=== PATIENT | male | born 1950 | race Caucasian/White ===

== ENCOUNTER 2020-03-23 19:36 | Inpatient (IN) | payer OTHER, MEDICARE, SELFPAY ==
[2020-03-23] VITALS (7 sets, daily range): BP systolic 96–156; BP diastolic 52–75; PULSE 75–90; RESP 16–28; TEMP 37.2–37.9; O2SAT 94–99; BMI 30.7; BMI 30.1
--- NOTE | 2020-03-23 19:59 | EKG12_ITS ---
Test Reason : CP Blood Pressure : / mmHG Vent. Rate : 077 BPM Atrial Rate : 077 BPM P-R Int : 110 ms QRS Dur : 088 ms QT Int : 370 ms P-R-T Axes : 045 015 017 degrees QTc Int : 418 ms Sinus rhythm with short [place] Otherwise normal ECG Confirmed by ALONSO ABDULLAHI, CLAUS ([id number]), graphic editor JOHN PIÑA ([id number]) on 03/29/2020 9:24:36 AM Referred By: DC Confirmed By:JOE GUPTA MD
[2020-03-23] MEDS: 0.9% Normal Saline 1,000 ML 1000 ML IV (20:20)
[2020-03-23 20:29] LABS: Absolute Lymphocyte Count 0.56 X10^3/uL (0.83-4.51); Absolute Neutrophil Count 13.5 X10^3/uL (2.0-7.7); Basophil# 0.01 X10^3/uL; Basophil% 0.1 % (0-1); Hematocrit 45.8 % (40-54); Hemoglobin 15.6 g/dL (13.0-16.5); Lymphocyte # 0.56 X10^3/ul (4.0); Lymphocyte % 3.8 % (19-41); Mean Corp Hgb Conc 34.1 g/dL (32-36); Mean Corpuscular Hgb 31.7 pg (27.0-32.0); Mean Corpuscular Volume 93.1 fL (80-94); Mean Platelet Vol. 10.5 fl (6.2-12.0); Monocyte# 0.55 X10^3/uL; Monocyte% 3.7 % (0-10); NRBC Flagged by Analyzer 0 % (0-5); Neutrophil # 13.51 X10^3/uL (2.7-7.7); Neutrophil % 91.6 % (47-70); POSITIVE DIFFERENTIAL YES; Platelet Count 163 K/mm3 (150-450); RBC Distribution Width CV 12.8 % (11.6-14.6); RBC Distribution Width SD 43.8 fl (35.1-43.9); Red Blood Count 4.92 M/mm3 (4.6-6.2); White Blood Count 14.8 K/mm3 (4.4-11.0)
[2020-03-23 20:35] LABS: Differential Indicated SCAN CRITERIA MET; International Normalized Ratio 1.1; Prothrombin Time (Protime)PT. 13.8 SECONDS (11.7-14.9)
[2020-03-23 20:36] LABS: Partial Thromboplast Time 30.3 Seconds (24.1-36.2)
[2020-03-23 20:49] LABS: ALB/GLOB Ratio 0.9 RATIO (0.9-2.4); AST(SGOT) 43 U/L (15-37); Alanine Aminotransfer ALT/SGPT 41 U/L (16-61); Albumin, Serum 3.3 g/dL (3.2-5.0); Alkaline Phosphatase 78 U/L (45-117); Anion Gap 9 (5-15); BUN 21 mg/dL (7-18); BUN/Creat Ratio 15.6 RATIO (10-20); Calcium,Total 8.6 mg/dL (8.5-10.1); Chloride 108 mmol/L (98-107); Creatinine, Serum 1.35 mg/dL (0.70-1.30); EST Glomerular Filtration Rate 56 mL/min (>60); Est Glom Filt Rate - Afr Amer 68 mL/min (>60); Estimated Creatinine Clearance 55.78 ml/min; Globulin 3.8 g/dL (2.2-4.2); Glucose 125 mg/dL (74-106); Potassium 3.8 mmol/L (3.5-5.1); Protein, Total 7.1 g/dL (6.4-8.2); Sodium Level 141 mmol/L (136-145)
[2020-03-23 20:55] LABS: Differential Comment SCANNED; Platelet Estimate ADEQUATE (ADEQ); Red Cell Morphology NORM C+C NORMAL (NORM C&C)
--- NOTE | 2020-03-23 21:14 | CT_ITS ---
STUDY: CTA CHEST REASON FOR EXAM: Male, 69 years old. +COVID. INCREASE SOB WITH CHEST TIGHTNESS,FEVER AND FATIGUE RADIATION DOSAGE (If Supplied By Facility): CTDIvol = ( 13.85 ) mGy, DLP = ( 567.85 ) mGycm TECHNIQUE: The examination was performed with the intravenous administration of 100mL Isovue-370. Post-processing of the angiographic images was performed, with multiplanar reformation and 3D reconstruction. Individualized dose optimization techniques were used for this CT. COMPARISON: None. FINDINGS: Normal enhancement of the main pulmonary artery and right and left pulmonary arteries. Normal enhancement of the bilateral peripheral pulmonary arteries. There is no demonstrated pulmonary embolism. Normal thoracic aorta and visualized great vessels. There is no demonstrated aortic dissection. There are calcifications of the coronary arteries. Normal mediastinum. Normal hilar regions. Normal visualized trachea and bronchi. The lungs are well expanded. There are moderate patchy interstitial and groundglass increased opacities of the lungs. Normal pleura. Normal chest wall structures. There are degenerative changes of thoracic spine. Normal visualized upper abdomen. CT/CTA Chest W/WO Contrast IMPRESSION: CTA chest examination, without a demonstrated pulmonary embolism or arterial dissection. Bilateral pneumonia. Electronically Signed: Juan J Schmitt MD at 22:06 EST , Service support ,
[2020-03-23] MEDS: Acetaminophen 500 MG Tablet 1000 MG PO (21:37)
--- NOTE | 2020-03-23 22:04 | ED.VISSUMM ---
- ER Visit Summary Date of Service: 03/23/20 Chief Complaint: Covid History of Present Illness: The patient is a 69 M who was diagnosed with Covid about 2 weeks ago. He was initially doing well with cold symptoms. Couple nights ago, he was doing worse with chest pain and shortness of breath. He was admitted at an outside facility and then discharged yesterday. He has been taking a Z-Bony and prednisone. Since discharge, he is doing worse. He reports chest burning and increasing shortness of breath. He has history of gout and neuropathy. Denies any cardiac, respiratory, diabetes, smoking, immune compromise, liver, or kidney history. Denies any history of blood clots. Physical Examination: Afebrile and vital signs unremarkable. Appears anxious but not toxic. Heart regular. Lungs clear. Abdomen soft. Skin appears normal. Legs nontender with no edema. Test Results: EKG shows sinus rhythm at a rate of 77. White count 14.8. Glucose 125, BUN 21, creatinine 1.35. AST 43. Coags normal. Troponin normal. CTA pending. Emergency Department Course and Treatment: Patient declined pain medicine. He was placed on the monitor. EKG and labs as above. CT pending. CT showed bilateral pneumonia with a Covid pattern. He dropped down to 90% with ambulation. He was treated with Decadron and the hospitalist was contacted for admission. I added on a lactate and cultures. Results are pending. Treatment Plan: As above Disposition: Admission Impression: Covid pneumonia This note was generated with [employer] dictation software. It may contain incorrect words, spelling, and punctuation that were not noted in review of the chart prior to signing ED Disposition - Plan for ED Patient: Referrals: Geo Ladd DO [Primary Care Provider] -
--- NOTE | 2020-03-23 22:23 | ED.RN ---
called and updated on patient condition and admission
--- NOTE | 2020-03-23 22:24 | HP.PCM_ITS ---
Problem List (1) Pneumonia due to COVID-19 virus Status: Acute (2) Hypoxia Status: Acute (3) Elevated BP without diagnosis of hypertension Status: Acute (4) Gout Status: Chronic Qualifiers: Gout site: unspecified site Gout etiology: unspecified cause Chronicity: unspecified Qualified Code(s): M10.9 - Gout, unspecified (5) Obesity (BMI 30.0-34.9) Status: Chronic History of Present Illness Date of Admission: 03/23/20 Chief Complaint: Dyspnea, worsening, recent COVID testing. The patient is a 69 y/o M w/ PMHx: Obesity, Gout who presents to the [facility] [place] ED on 03/23/20 with history of recent COVID diagnosis 03/11/20 with symptom onset 2 days prior to this testing date with increasing dyspnea, chest tightness, ongoing fevers, malaise and fatigue, not clinically improving prompting ED evaluation. Patient notes initially had fever, chills, body aches, fontal throbbing headaches, nausea and occasional emesis as well as occasional diarrhea without abdominal cramping, alteration to sense of taste/smell but these symptoms have somewhat improved with ongoing dyspnea, cough. Patient per report was recently admitted to outside facility ([facility]) and discharged the day prior to current presentation, started on Z-Bony as well as prednisone since his discharge per their facility. Work-up in the ED included T 98.9, heart rate 86, BP 156/73, respiratory rate 20, 94% on room air, ambulation oxygen trial with decreased to 90% with activity, CBC with WC 14.8, hemoglobin 15.6, platelet 163 with left shift and lymphopenia, unremarkable coags, CMP with chloride 108, BUN/creatinine 21/1.35, glucose 125, AST 43, troponin less than 0.015 otherwise unremarkable, CTPA with evidence of bilateral pneumonia with no evidence of pulmonary emboli, EKG SR without acute evidence of ischemia. In the ED patient ministered normal saline as well as tylenol and decadron IV. Past Medical History Past Medical History (Chronic Problems): Chronic Problems Gout (Chronic) Obesity (BMI 30.0-34.9) (Chronic) Allergies No Known Allergies Allergy (Verified 03/23/20 19:36) Home Medications: Ambulatory Orders Medication Instructions Recorded Acetaminophen [Tylenol Extra 500 - 1,000 mg PO Q6H PRN PRN 03/23/20 Strength] Albuterol IH (ProAir) 1 - 2 puff INHALATION Q4H PRN 03/23/20 Azithromycin [Zithromax] 250 mg PO DAILY 03/23/20 Febuxostat 40 mg PO DAILY 03/23/20 Prednisone 03/23/20 Surgical History: - - Lumbar back surgery, right total hip replacement, kidney stone intervention, tonsillectomy. Psychiatric History: No pertinent psych hx Lives: Spouse/ Significant Other, With Family - Patient was with his and his daughters at home also. Smoking Status: Never smoker Tobacco Use: Non-smoker Alcohol: None Drugs: None - *Family History Maternal History Items: Cancer - Mother with a history of pancreatic cancer, passed. Paternal History Items: Renal Disease Review of Systems Constitutional: Reports: Anorexia, Chills, Fever, Malaise, Weakness, Fatigue. Denies: Weight Change HEENT: Reports: Head Aches. Denies: Sinus Congestion, Sinus Drainage Cardiovascular: Reports: Chest Pain, Chest Tightness. Denies: Chest Pressure, Orthopnea, Palpitations, Syncope Respiratory: Reports: Cough, Pleuritic Pain, Shortness of Breath, Shortness of breath at rest, Shortness of breath upon exertion. Denies: Sputum production, Wheezing Gastrointestinal: Denies: Abdominal Pain, Nausea, Vomiting Genitourinary: Denies: Dysuria Musculoskeletal: Reports: Back Pain, Joint Pain, Muscle pain. Denies: Joint Tenderness Skin: Denies: Rash, Wounds Neurological: Denies: Numbness, Tingling, Focal weakness Psychiatric: Denies: Anxiety, Depression, Homicidal Ideations, Suicidal Ideations Hematologic/ Lymphatic: Denies: Easy Bruising, Easy Bleeding VTE Information - Inpt Only VTE Present on Admission: No VTE Mechan Device Prophylaxis: SCD's VTE Pharm Prophylaxis ordered?: Yes Patient Problems: Active and Suspected Problems Pneumonia due to COVID-19 virus (Acute) Hypoxia (Acute) Elevated BP without diagnosis of hypertension (Acute) Subjective: Laying in the ED bed, ill and fatigued appearing. Objective: Physical Examination: General: awake, alert, oriented x 3 and cooperative, laying in the ED bed, fatigued and ill-appearing. Skin: Flushed color, normal turgor, no icterus, no cyanosis. HEENT: AT/NC, EOMI, PERRLA, moderately dry MM, no carotid bruits or JVD noted. Lungs: Diminished breath sounds, greater bases, increased respiratory rate, no rales, ronchi or wheezing. Heart: Regular rate and rhythm; no gallop, rub audible. Abdomen: soft, obese, NTTP, ND, mildly hyperactive BS, no HSM. Extremities: no cyanosis, clubbing, or edema. Neurological: patient awake, alert, oriented as noted; cognitive function intact; pupils equally reactive to light and accomodation; cranial nerves II-XII grossly normal, moving all 4 extremities, no focal deficits, strength moderately to severely globally decreased secondary to acute presentation. Psychiatric: affect appears fatigued, ill-appearing, no acute evidence of depressive or anxiety feelings. - Physical Exam Vitals/I&O's: Vital Signs Temp Pulse Resp BP Pulse Ox 99.7 F H 90 28 H 130/75 H 99 03/23/20 21:37 03/23/20 21:37 03/23/20 21:37 03/23/20 21:37 03/23/20 21:37 Oxygen Flow Rate (L/min) 2 Oxygen Delivery Method Nasal Cannula Weight: 220 lb Body Mass Index (BMI) 30.7 Intake and Output for Last 24 Hours 03/21/20 03/22/20 03/23/20 23:59 23:59 23:59 Intake Total 1000 / 1000 Balance 1000 / 1000 Laboratory Results 03/23/20 20:14: WBC 14.8 H, RBC 4.92, Hgb 15.6, Hct 45.8, MCV 93.1, MCH 31.7, MCHC 34.1, RDW Std Deviation 43.8, RDW Coeff of Candido 12.8, Plt Count 163, MPV 10.5, Immature Gran % (Auto) 0.800, Neut % (Auto) 91.6 H, Lymph % (Auto) 3.8 L, Knox % (Auto) 3.7, Eos % (Auto) 0.0, Baso % (Auto) 0.1, Absolute Neuts (auto) 13.5 H, Absolute Lymphs (auto) 0.56 L, Nucleated RBC % 0, Differential Comment SCANNED, Platelet Estimate ADEQUATE, RBC Morphology NORM C+C 03/23/20 20:14: PT 13.8, INR 1.1, APTT 30.3 03/23/20 20:14: Sodium 141, Potassium 3.8, Chloride 108 H, Carbon Dioxide 24.0, Anion Gap 9, BUN 21 H, Creatinine 1.35 H, Estim Creat Clear Calc 55.78, Est GFR (MDRD) Af Amer 68, Est GFR (MDRD) Non-Af 56 L, BUN/Creatinine Ratio 15.6, Glucose 125 H, Calcium 8.6, Total Bilirubin 0.60, AST 43 H, ALT 41, Alkaline Phosphatase 78, Troponin I < 0.015, Total Protein 7.1, Albumin 3.3, Globulin 3.8, Albumin/Globulin Ratio 0.9 Assessment/Plan All Active Problems Pneumonia due to COVID-19 virus (Acute) Hypoxia (Acute) Elevated BP without diagnosis of hypertension (Acute) The patient is a 69 y/o M w/ PMHx: Obesity, Gout who presents to the [facility] [place] ED on 03/23/20 with history of recent COVID diagnosis 03/11/20 with symptom onset 2 days prior to this testing date with increasing dyspnea, chest tightness, ongoing fevers, malaise and fatigue, not clinically improving prompting ED evaluation. 1. Acute Hypoxia with Dyspnea, Cough, Fever with Bilateral Pneumonia secondary to Acute Viral Syndrome, COVID-19: Will admit to the COVID unit, given severity of symptoms will maintain on isolation, will maintain on oxygen with wean as tolerated to room air, IS parameters w/ pending sputum cultures, respiratory viral panel and urine antigens, will obtain D-dimer, procalcitonin, CRP, CPK, Ferritin, LDH, continue supportive care including q 2 hour turning including prone given no prone bed availability and judicious hydration, closely monitor for worsening status for ARDS and multiorgan failure, consult Infectious disease, initiate remdesivir but will defer to ID discretion, initiate decadron 6 mg IV daily x 10 doses. LA pending. 2. Possible Acute Renal Insufficiency versus Underlying Chronic Kidney Disease Stage III: Admission BUN/Cr 21/1.35, baseline renal function unknown but reportedly normal, repeat CMP in AM, judicious hydration given #1. 3. Elevated BP without HTN diagnosis: ED BP elevated above goal, possibly associated with acute presentation #1, continue to monitor and add regimen if appropriate, PRN IV hydralazine. 4. Obesity: Weight loss and lifestyle changes encouraged. 5. Gout: We will continue patient home febuxostat stat regimen but if renal function alters further may need to consider alteration or hold. 6. DVT prophylaxis: SCDs, lovenox. OBSV E&M: [id number] Initial observation care L3
[2020-03-23] MEDS: dexAMETHasone 10 MG/ML Vial 6 MG IV (22:48)
[2020-03-23 23:12] LABS: Lactic Acid 2.5 mmol/L (0.4-1.9)
[2020-03-24] VITALS (8 sets, daily range): BP systolic 109–130; BP diastolic 63–76; PULSE 51–78; RESP 16–20; TEMP 36.1–37.6; O2SAT 94–98
[2020-03-24 00:03] LABS: D-Dimer Quantitative (DVT/PE) 0.68 FEU/ug/m (0.27-0.49)
[2020-03-24 00:18] LABS: BNP,B-Type NATRIURETIC PEPTIDE 172.3 pg/mL (0-100)
[2020-03-24 00:22] LABS: Procalcitonin 0.08 ng/mL (0.00-0.09)
[2020-03-24 00:23] LABS: Ferritin 251 ng/mL (26-388); LDH 427 U/L (87-241); Magnesium 2.1 mg/dL (1.6-2.6)
[2020-03-24] MEDS: Enoxaparin 30 MG/0.3 ML Syringe SC ×3 (00:50→21:48)
[2020-03-24] MEDS: 0.9% Normal Saline 1,000 ML 100 ML IV (00:50)
[2020-03-24] MEDS: INHALER, ASSIST DEVICES 1 EACH SPACER INHALATION (01:01)
[2020-03-24 02:41] LABS: Reflex Lactate? Y
[2020-03-24 03:31] LABS: Absolute Lymphocyte Count 0.38 X10^3/uL (0.83-4.51); Absolute Neutrophil Count 11.6 X10^3/uL (2.0-7.7); Basophil# 0.01 X10^3/uL; Basophil% 0.1 % (0-1); Hematocrit 42.8 % (40-54); Hemoglobin 14.7 g/dL (13.0-16.5); Lymphocyte # 0.38 X10^3/ul (4.0); Mean Corp Hgb Conc 34.3 g/dL (32-36); Mean Platelet Vol. 10.3 fl (6.2-12.0); Monocyte# 0.33 X10^3/uL; Monocyte% 2.6 % (0-10); NRBC Flagged by Analyzer 0 % (0-5); Neutrophil # 11.62 X10^3/uL (2.7-7.7); Neutrophil % 93.3 % (47-70); POSITIVE DIFFERENTIAL YES; Platelet Count 155 K/mm3 (150-450); RBC Distribution Width CV 12.8 % (11.6-14.6); RBC Distribution Width SD 43.5 fl (35.1-43.9); White Blood Count 12.5 K/mm3 (4.4-11.0)
[2020-03-24 03:36] LABS: Differential Indicated SCAN CRITERIA MET
[2020-03-24] MEDS: Ibuprofen 600 MG Tablet PO (03:36)
[2020-03-24] MEDS: Gabapentin 100 MG Capsule PO ×4 (03:36→17:02)
[2020-03-24 03:47] LABS: ALB/GLOB Ratio 0.8 RATIO (0.9-2.4); AST(SGOT) 37 U/L (15-37); Alanine Aminotransfer ALT/SGPT 35 U/L (16-61); Albumin, Serum 2.9 g/dL (3.2-5.0); Alkaline Phosphatase 64 U/L (45-117); Anion Gap 7 (5-15); BUN 18 mg/dL (7-18); BUN/Creat Ratio 16.1 RATIO (10-20); Calcium,Total 8.1 mg/dL (8.5-10.1); Chloride 110 mmol/L (98-107); Creatinine, Serum 1.12 mg/dL (0.70-1.30); EST Glomerular Filtration Rate 69 mL/min (>60); Est Glom Filt Rate - Afr Amer 84 mL/min (>60); Estimated Creatinine Clearance 67.23 ml/min; Globulin 3.5 g/dL (2.2-4.2); Glucose 146 mg/dL (74-106); Potassium 3.7 mmol/L (3.5-5.1); Protein, Total 6.4 g/dL (6.4-8.2); Sodium Level 139 mmol/L (136-145)
[2020-03-24 03:50] LABS: Lactic Acid 2.5 mmol/L (0.4-1.9)
--- NOTE | 2020-03-24 07:37 | PCM.PN.HOSP ---
Patient Problems: Active and Suspected Problems Pneumonia due to COVID-19 virus (Acute) Hypoxia (Acute) Elevated BP without diagnosis of hypertension (Acute) Reason for Visit: Follow-up for acute hypoxic respiratory failure secondary to COVID-19 pneumonia. Objective: Patient had temperature T-max 100.3 Fahrenheit. Respiratory rate 20 to 22/min. On 2 L of oxygen. Patient denies chronic cardiopulmonary disease and smoking. Patient has mild symptoms of cough, shortness of breath, chest tightness, fever with chills and fatigue. Since 03/08 and was tested positive on 03/10. Patient also had loss of taste and smell which has recovered. No nausea or vomiting. Patient was also admitted in [facility] for 1 day prior to admission. Physical exam General: Alert, Oriented x3, Cooperative HEENT: Atraumatic, PERRLA, EOMI, Normocephalic Oral: No Gingival or Mucosal Lesions/ Ulcerations Neck: Supple, No JVD, Negative Carotid Bruits Lungs: Air entry diminished in bilateral lung bases. Bibasilar coarse rales present. Cardiovascular: Regular rate, Regular Rhythm, Normal S1, Normal S2, No murmurs Abdomen: Bowel Sounds Present, Soft, Non Tender, Non-Distended : No renal angle tenderness. No suprapubic tenderness. Extremities: No edema, Capillary Refill Less than 3 Seconds Skin: No rashes, No breakdown Musculoskeletal: No Tenderness to Palpation of Joints or Extremities Neurological: Cranial nerves II-XII grossly intact, Deep Tendon Reflexes 2+/4 and Symmetrical, Neuro grossly intact Psych/Mental Status: Normal Affect, Appropriate. Vitals/I&O's: Vital Signs Temp Pulse Resp BP Pulse Ox 99.6 F H 78 20 H 120/69 95 03/24/20 03:41 03/24/20 05:45 03/24/20 05:45 03/24/20 03:41 03/24/20 05:45 Oxygen Flow Rate (L/min) 2 Oxygen Delivery Method Nasal Cannula Weight: 215 lb 13.321 oz Body Mass Index (BMI) 30.1 Intake and Output for Last 24 Hours 03/22/20 03/23/20 03/24/20 23:59 23:59 23:59 Intake Total 1000 / 1000 1350 / 1350 Balance 1000 / 1000 1350 / 1350 Microbiology Past 72 Hours 03/24/20 00:30 Urine, Clean Catch Legionella Antigen - Final 03/24/20 00:30 Urine, Clean Catch Streptococcus pneumoniae Antigen (M - Final Laboratory Results 03/23/20 20:14: WBC 14.8 H, RBC 4.92, Hgb 15.6, Hct 45.8, MCV 93.1, MCH 31.7, MCHC 34.1, RDW Std Deviation 43.8, RDW Coeff of Candido 12.8, Plt Count 163, MPV 10.5, Immature Gran % (Auto) 0.800, Neut % (Auto) 91.6 H, Lymph % (Auto) 3.8 L, Wood % (Auto) 3.7, Eos % (Auto) 0.0, Baso % (Auto) 0.1, Absolute Neuts (auto) 13.5 H, Absolute Lymphs (auto) 0.56 L, Nucleated RBC % 0, Differential Comment SCANNED, Platelet Estimate ADEQUATE, RBC Morphology NORM C+C 03/23/20 20:14: PT 13.8, INR 1.1, APTT 30.3, D-Dimer Quant (PE/DVT) 0.68 H* 03/23/20 20:14: Sodium 141, Potassium 3.8, Chloride 108 H, Carbon Dioxide 24.0, Anion Gap 9, BUN 21 H, Creatinine 1.35 H, Estim Creat Clear Calc 55.78, Est GFR (MDRD) Af Amer 68, Est GFR (MDRD) Non-Af 56 L, BUN/Creatinine Ratio 15.6, Glucose 125 H, Calcium 8.6, Total Bilirubin 0.60, AST 43 H, ALT 41, Alkaline Phosphatase 78, Troponin I < 0.015, Total Protein 7.1, Albumin 3.3, Globulin 3.8, Albumin/Globulin Ratio 0.9 03/23/20 20:14: Magnesium 2.1, Ferritin 251, Lactate Dehydrogenase 427 H, C-React Prot Ext Range 65.60 H 03/23/20 20:14: B-Natriuretic Peptide 172.3 H 03/23/20 20:14: Procalcitonin 0.08 03/23/20 21:38: Lactic Acid 2.5 H* 03/24/20 03:14: Blood Type A NEGATIVE, Antibody Screen NEGATIVE 03/24/20 03:14: Sodium 139, Potassium 3.7, Chloride 110 H, Carbon Dioxide 22.0, Anion Gap 7, BUN 18, Creatinine 1.12, Estim Creat Clear Calc 67.23, Est GFR (MDRD) Af Amer 84, Est GFR (MDRD) Non-Af 69, BUN/Creatinine Ratio 16.1, Glucose 146 H, Calcium 8.1 L, Total Bilirubin 0.60, AST 37, ALT 35, Alkaline Phosphatase 64, Total Protein 6.4, Albumin 2.9 L, Globulin 3.5, Albumin/Globulin Ratio 0.8 L 03/24/20 03:14: WBC 12.5 H, RBC 4.60, Hgb 14.7, Hct 42.8, MCV 93.0, MCH 32.0, MCHC 34.3, RDW Std Deviation 43.5, RDW Coeff of Candido 12.8, Plt Count 155, MPV 10.3, Immature Gran % (Auto) 1.000 H, Neut % (Auto) 93.3 H, Lymph % (Auto) 3.0 L, Wood % (Auto) 2.6, Eos % (Auto) 0.0, Baso % (Auto) 0.1, Absolute Neuts (auto) 11.6 H, Absolute Lymphs (auto) 0.38 L, Nucleated RBC % 0 03/24/20 03:14: Lactic Acid 2.5 H* 03/24/20 07:20: Lactic Acid Pending Current Medications Acetaminophen (Acetaminophen 325 Mg Tablet) 650 mg PO Q6H PRN PRN PRN Reason: Pain Score 1-10/Temp > 100.7 F Al Hydroxide/Mg Hydroxide (Mag Hydrox/Al Hydrox/Simeth 30 Ml Udc) 30 ml PO Q6H PRN PRN PRN Reason: Gastric Burning Albuterol Sulfate (Albuterol Sulfate 18 Gm Inhaler (200 Puffs)) 4 - 8 puff IH Q4H PRN PRN PRN Reason: Dyspnea, wheezing Last Admin: 03/24/20 01:10 Dose: 4 puff Documented by: Dexamethasone Sodium Phosphate (Dexamethasone 10 Mg/Ml Vial) 6 mg IV DAILY [facility] Stop: 04/02/20 10:01 Enoxaparin Sodium (Enoxaparin 30 Mg/0.3 Ml Syringe) 30 mg SC BID [facility] Last Admin: 03/24/20 00:50 Dose: 30 mg Documented by: Famotidine (Famotidine 20 Mg Tablet) 20 mg PO BID [facility] Febuxostat (Febuxostat 40 Mg Tablet) 40 mg PO DAILY [facility] Gabapentin (Gabapentin 100 Mg Capsule) 100 mg PO TIDCM [facility] Last Admin: 03/24/20 03:36 Dose: 100 mg Documented by: Guaifenesin (Guaifenesin 10 Ml Udc (200mg/10ml)) 20 ml PO Q4H PRN PRN PRN Reason: COUGH Hydralazine HCl (Hydralazine 20 Mg/Ml Vial) 10 mg IV Q4H PRN PRN PRN Reason: SBP > 160 Sodium Chloride () 1,000 mls @ 100 mls/hr IV .Q10H [facility] Stop: 03/24/20 09:40 Last Admin: 03/24/20 00:50 Dose: 100 mls/hr Documented by: Remdesivir 100 mg/ Sodium (Chloride) 250 mls @ 125 mls/hr IV DAILY@2200 [facility] Stop: 03/27/20 23:59 Ibuprofen (Ibuprofen 600 Mg Tablet) 600 mg PO Q8H PRN PRN PRN Reason: Fever, pain -01/02 Last Admin: 03/24/20 03:36 Dose: 600 mg Documented by: Magnesium Hydroxide (Magnesium Hydroxide 30 Ml Udc) 30 ml PO DAILY PRN PRN PRN Reason: Constipation Melatonin (Melatonin 3 Mg Tablet) 3 mg PO QHS PRN PRN PRN Reason: INSOMNIA Miscellaneous Information (Inhaler, Assist Devices 1 Each Spacer) 1 each INHALATION PRN PRN PRN Reason: WITH ALBUTEROL MDI Last Admin: 03/24/20 01:01 Dose: 1 each Documented by: Nitroglycerin (Nitroglycerin (Inpatient Use) 0.4 Mg Tab.Subl) 0.4 mg SUBLINGUAL Q5M PRN PRN Reason: CARDIAC/CHEST PAIN Ondansetron HCl (Ondansetron 4 Mg/2 Ml Vial) 4 mg IV Q8H PRN PRN PRN Reason: NAUSEA/VOMITING Prochlorperazine Edisylate (Prochlorperazine 10 Mg/2 Ml Vial) 5 mg IV Q4H PRN PRN PRN Reason: Breakthrough nausea/vomiting Psyllium Hydrophilic Mucilloid (Psyllium 1 Packet) 1 packet PO DAILY PRN PRN PRN Reason: Constipation Senna/Docusate Sodium (Senna/Docusate Sodium 1 Tablet) 2 tablet PO BID PRN PRN PRN Reason: Constipation Sodium Chloride (0.9% Saline Lock 10 Ml Syringe) 10 - 40 ml IV UD PRN PRN Reason: SALINE FLUSH Throat Lozenges (Benzocaine/Menthol 1 Lozenge) 1 lozenge MUCOUS MEM Q2H PRN PRN PRN Reason: SORE THROAT STROKE Vital Signs/Narrative: Vital Signs Temp Pulse Resp BP Pulse Ox 03/24/20 05:45 78 20 H 95 03/24/20 03:41 99.6 F H 74 20 H 120/69 94 Medical Necessity - Tobacco Use Smoking Status: Never smoker Tobacco Use: Non-smoker Assessment/Plan All Active Problems Pneumonia due to COVID-19 virus (Acute) Hypoxia (Acute) Elevated BP without diagnosis of hypertension (Acute) The patient is a 69 y/o M history of obesity, Gout who was admitted on Covid cohort floor 03/23/20 with history of recent COVID diagnosis 03/10/20 with notes of breath, chest tightness, fever and chills, malaise and weakness since 2013. 1. Acute COVID-19 bilateral pneumonia with mild hypoxia: Patient has elevated lactic acid two-point 5 repeat was normal. Elevated inflammatory markers LDH, CRP, and D-dimer. BNP elevated 172 but not more than 400 therefore congestive heart failure unlikely. CTA chest was done which showed no pulmonary embolism arterial dissection. Bilateral pneumonia. On IV Decadron, remdesivir. ID consult. Continue with chest physiotherapy and incentive spirometry. Urinary antigens are negative. Respiratory panel negative. Blood cultures x2 and sputum culture are pending. 2. Acute Renal Insufficiency or chronic Kidney Disease Stage III: Patient does not have any previous labs. Admission BUN/Cr 21/1.35. Repeat labs shows BUN/creatinine 18/1.12. 3. Elevated BP without HTN diagnosis: ED blood pressure was elevated. Currently 123/71 4. Obesity: Weight loss and lifestyle changes encouraged. 5. Gout: We will continue patient home febuxostat stat regimen 6. DVT prophylaxis: SCDs, lovenox. Clinical Impression(s) from Imaging Studies Chest CTA 03/23/20 21:14 IMPRESSION: CTA chest examination, without a demonstrated pulmonary embolism or arterial dissection. Bilateral pneumonia. Microbiology Past 72 Hours 03/24/20 00:30 Sputum, Expectorated/Coughed Gram Stain - Final 03/24/20 05:33 Mucosa - Nasopharyngeal Respiratory Panel (PCR) - Final 03/24/20 00:30 Urine, Clean Catch Legionella Antigen - Final 03/24/20 00:30 Urine, Clean Catch Streptococcus pneumoniae Antigen (M - Final Laboratory Results 03/23/20 20:14: WBC 14.8 H, RBC 4.92, Hgb 15.6, Hct 45.8, MCV 93.1, MCH 31.7, MCHC 34.1, RDW Std Deviation 43.8, RDW Coeff of Candido 12.8, Plt Count 163, MPV 10.5, Immature Gran % (Auto) 0.800, Neut % (Auto) 91.6 H, Lymph % (Auto) 3.8 L, Wood % (Auto) 3.7, Eos % (Auto) 0.0, Baso % (Auto) 0.1, Absolute Neuts (auto) 13.5 H, Absolute Lymphs (auto) 0.56 L, Nucleated RBC % 0, Differential Comment SCANNED, Platelet Estimate ADEQUATE, RBC Morphology NORM C+C 03/23/20 20:14: PT 13.8, INR 1.1, APTT 30.3, D-Dimer Quant (PE/DVT) 0.68 H* 03/23/20 20:14: Sodium 141, Potassium 3.8, Chloride 108 H, Carbon Dioxide 24.0, Anion Gap 9, BUN 21 H, Creatinine 1.35 H, Estim Creat Clear Calc 55.78, Est GFR (MDRD) Af Amer 68, Est GFR (MDRD) Non-Af 56 L, BUN/Creatinine Ratio 15.6, Glucose 125 H, Calcium 8.6, Total Bilirubin 0.60, AST 43 H, ALT 41, Alkaline Phosphatase 78, Troponin I < 0.015, Total Protein 7.1, Albumin 3.3, Globulin 3.8, Albumin/Globulin Ratio 0.9 03/23/20 20:14: Magnesium 2.1, Ferritin 251, Lactate Dehydrogenase 427 H, C-React Prot Ext Range 65.60 H 03/23/20 20:14: B-Natriuretic Peptide 172.3 H 03/23/20 20:14: Procalcitonin 0.08 03/23/20 21:38: Lactic Acid 2.5 H* 03/24/20 03:14: Blood Type A NEGATIVE, Antibody Screen NEGATIVE 03/24/20 03:14: Sodium 139, Potassium 3.7, Chloride 110 H, Carbon Dioxide 22.0, Anion Gap 7, BUN 18, Creatinine 1.12, Estim Creat Clear Calc 67.23, Est GFR (MDRD) Af Amer 84, Est GFR (MDRD) Non-Af 69, BUN/Creatinine Ratio 16.1, Glucose 146 H, Calcium 8.1 L, Total Bilirubin 0.60, AST 37, ALT 35, Alkaline Phosphatase 64, Total Protein 6.4, Albumin 2.9 L, Globulin 3.5, Albumin/Globulin Ratio 0.8 L 03/24/20 03:14: WBC 12.5 H, RBC 4.60, Hgb 14.7, Hct 42.8, MCV 93.0, MCH 32.0, MCHC 34.3, RDW Std Deviation 43.5, RDW Coeff of Candido 12.8, Plt Count 155, MPV 10.3, Immature Gran % (Auto) 1.000 H, Neut % (Auto) 93.3 H, Lymph % (Auto) 3.0 L, Wood % (Auto) 2.6, Eos % (Auto) 0.0, Baso % (Auto) 0.1, Absolute Neuts (auto) 11.6 H, Absolute Lymphs (auto) 0.38 L, Nucleated RBC % 0 03/24/20 03:14: Lactic Acid 2.5 H* 03/24/20 07:20: Lactic Acid 1.7 Inpatient E&M: 31974 Subs Hosp L2
[2020-03-24 07:59] LABS: Lactic Acid 1.7 mmol/L (0.4-1.9)
[2020-03-24] MEDS: Febuxostat 40 MG TABLET PO (08:48)
[2020-03-24] MEDS: dexAMETHasone 10 MG/ML Vial 6 MG IV (08:48)
[2020-03-24] MEDS: Famotidine 20 MG Tablet PO ×2 (08:48→21:48)
--- NOTE | 2020-03-24 11:10 | CASEMGMT ---
RN CM Assessment Note Introduced role of CM to patient in room. Demographics, PCP verified. Patient states he is independent @ home and does not have care needs. His has tested negative and is quarantining @ home. -They have supplies and people able to bring grocery needs. COVID TESTING: [facility] [place]. positive testing on 03/10/2020 Diagnosis: COVID 19 PCP: Dr. Ladd Insurance: [facility] Preferred Pharmacy: [place], [place] Prescription Benefit: yes LNOK: , Sofie Goldberg Living Arrangements: Lives independently. No care needs per pt Tranportation: drives DME: none (If oxygen needed, can use [facility] [facility] or [employer]) HHC: none SNF: none Patient DC Goals: Home DC Plan: Home on dc. Pt is currently on RA. CM available for discharge planning coordination. Contact CM for any concerns/needs that may arise. Wei LEIGHN RN ACM
--- NOTE | 2020-03-24 14:01 | CHAPLAIN ---
Type of Pastoral Visit ___ Initial Visit ___ Follow-up Visit ___ On-call Visit ___ General Patient Visit ___ Spiritual Assessment ___ Family Conference ___ Bereavement ___ Rapid Response ___ Code Blue _x__ Other (describe below) Pastoral Care Referral From ___ Patient ___ Family ___ Nurse ___ Physician ___ Framing Mill Supervisor ___ Electrical Cad Technician _x__ Other (describe below) Sacrament/Intervention _x__ Active listening ___ Anointing ___ Jehovah'S Witness ___ Bereavement ___ Communion _x__ Layne exploration ___ ___ Life review _x__ Prayer ___ Reconciliation ___ Sacrament of Sick _x__ Supportive presence ___ Wedding ___ Other (describe below) Pastoral Comments phone call into isolation room; pt answers phone and reports improvement; pt welcomes someone to talk with and deal with the isolation; pt admits that early on it was a depressive feeling and feeling isolated even from God but doing better now; pt says he would like prayer; pt says he is getting good care and treatment; pt says you made my day legal archivist by calling into room
--- NOTE | 2020-03-24 15:40 | PCM.HP.ID ---
Problem List (1) Pneumonia due to COVID-19 virus Status: Acute Reason for Consult: covid Consulted by: Dr. Ritter History of Present Illness: The patient is a 69 year old M developed sx 03/08 with congestion, then dry cough. Tested (+) 03/10. Developed fever, chills, severe fatigue, loss of appetite, lost about 10-15lbs, some diarrhea, lost taste/smell for a day, had diarrhea and muscle aches. Went to [facility] ED, given O2, discharged in AM. Came here soon after, started on dex, remdesivir, feeling a lot better this afternoon. Lives with and daughter who are asymptomatic. had neg Ab test a week ago. Full ROS performed and neg except as noted above. - Medical History Past Medical History (Chronic Problems): Chronic Problems Gout (Chronic) Obesity (BMI 30.0-34.9) (Chronic) Allergies/Adverse Reactions: Allergies No Known Allergies Allergy (Verified 03/23/20 19:36) Home Medications: Ambulatory Orders Medication Instructions Recorded Acetaminophen [Tylenol Extra 500 - 1,000 mg PO Q6H PRN PRN 03/23/20 Strength] Albuterol IH (ProAir) 1 - 2 puff INHALATION Q4H PRN 03/23/20 Azithromycin [Zithromax] 250 mg PO DAILY 03/23/20 Febuxostat 40 mg PO DAILY 03/23/20 Prednisone 03/23/20 - Social History Tobacco Use: non-smoker Vital Signs Temp Pulse Resp BP Pulse Ox 97.1 F L 51 L 20 H 123/71 H 96 03/24/20 11:58 03/24/20 11:58 03/24/20 14:00 03/24/20 11:58 03/24/20 11:58 Oxygen Flow Rate (L/min) 1 Oxygen Delivery Method Room Air Weight: 97.9 kg Body Mass Index (BMI) 30.1 Microbiology Past 72 Hours 03/24/20 00:30 Gram Stain - Final Sputum, Expectorated/Coughed 03/24/20 05:33 Respiratory Panel (PCR) - Final Mucosa - Nasopharyngeal 03/24/20 00:30 Legionella Antigen - Final Urine, Clean Catch Streptococcus pneumoniae Antigen (M - Final Laboratory Tests Past 24 Hrs 03/23/20 03/23/20 03/23/20 20:14 20:14 20:14 WBC 14.8 H RBC 4.92 Hgb 15.6 Hct 45.8 MCV 93.1 MCH 31.7 MCHC 34.1 RDW Std Deviation 43.8 RDW Coeff of Candido 12.8 Plt Count 163 MPV 10.5 Immature Gran % (Auto) 0.800 Neut % (Auto) 91.6 H Lymph % (Auto) 3.8 L [place] % (Auto) 3.7 Eos % (Auto) 0.0 Baso % (Auto) 0.1 Absolute Neuts (auto) 13.5 H Absolute Lymphs (auto) 0.56 L Nucleated RBC % 0 Differential Comment SCANNED Platelet Estimate ADEQUATE RBC Morphology NORM C+C PT 13.8 INR 1.1 APTT 30.3 D-Dimer Quant (PE/DVT) 0.68 H* Sodium 141 Potassium 3.8 Chloride 108 H Carbon Dioxide 24.0 Anion Gap 9 BUN 21 H Creatinine 1.35 H Estim Creat Clear Calc 55.78 Est GFR (MDRD) Af Amer 68 Est GFR (MDRD) Non-Af 56 L BUN/Creatinine Ratio 15.6 Glucose 125 H Lactic Acid Calcium 8.6 Magnesium Ferritin Total Bilirubin 0.60 AST 43 H ALT 41 Alkaline Phosphatase 78 Lactate Dehydrogenase Troponin I < 0.015 C-React Prot Ext Range B-Natriuretic Peptide Total Protein 7.1 Albumin 3.3 Globulin 3.8 Albumin/Globulin Ratio 0.9 Procalcitonin Blood Type Antibody Screen 03/23/20 03/23/20 03/23/20 20:14 20:14 20:14 WBC RBC Hgb Hct MCV MCH MCHC RDW Std Deviation RDW Coeff of Candido Plt Count MPV Immature Gran % (Auto) Neut % (Auto) Lymph % (Auto) [place] % (Auto) Eos % (Auto) Baso % (Auto) Absolute Neuts (auto) Absolute Lymphs (auto) Nucleated RBC % Differential Comment Platelet Estimate RBC Morphology PT INR APTT D-Dimer Quant (PE/DVT) Sodium Potassium Chloride Carbon Dioxide Anion Gap BUN Creatinine Estim Creat Clear Calc Est GFR (MDRD) Af Amer Est GFR (MDRD) Non-Af BUN/Creatinine Ratio Glucose Lactic Acid Calcium Magnesium 2.1 Ferritin 251 Total Bilirubin AST ALT Alkaline Phosphatase Lactate Dehydrogenase 427 H Troponin I C-React Prot Ext Range 65.60 H B-Natriuretic Peptide 172.3 H Total Protein Albumin Globulin Albumin/Globulin Ratio Procalcitonin 0.08 Blood Type Antibody Screen 03/23/20 03/24/20 03/24/20 21:38 03:14 03:14 WBC RBC Hgb Hct MCV MCH MCHC RDW Std Deviation RDW Coeff of Candido Plt Count MPV Immature Gran % (Auto) Neut % (Auto) Lymph % (Auto) [place] % (Auto) Eos % (Auto) Baso % (Auto) Absolute Neuts (auto) Absolute Lymphs (auto) Nucleated RBC % Differential Comment Platelet Estimate RBC Morphology PT INR APTT D-Dimer Quant (PE/DVT) Sodium 139 Potassium 3.7 Chloride 110 H Carbon Dioxide 22.0 Anion Gap 7 BUN 18 Creatinine 1.12 Estim Creat Clear Calc 67.23 Est GFR (MDRD) Af Amer 84 Est GFR (MDRD) Non-Af 69 BUN/Creatinine Ratio 16.1 Glucose 146 H Lactic Acid 2.5 H* Calcium 8.1 L Magnesium Ferritin Total Bilirubin 0.60 AST 37 ALT 35 Alkaline Phosphatase 64 Lactate Dehydrogenase Troponin I C-React Prot Ext Range B-Natriuretic Peptide Total Protein 6.4 Albumin 2.9 L Globulin 3.5 Albumin/Globulin Ratio 0.8 L Procalcitonin Blood Type A NEGATIVE Antibody Screen NEGATIVE 03/24/20 03/24/20 03/24/20 03:14 03:14 07:20 WBC 12.5 H RBC 4.60 Hgb 14.7 Hct 42.8 MCV 93.0 MCH 32.0 MCHC 34.3 RDW Std Deviation 43.5 RDW Coeff of Candido 12.8 Plt Count 155 MPV 10.3 Immature Gran % (Auto) 1.000 H Neut % (Auto) 93.3 H Lymph % (Auto) 3.0 L [place] % (Auto) 2.6 Eos % (Auto) 0.0 Baso % (Auto) 0.1 Absolute Neuts (auto) 11.6 H Absolute Lymphs (auto) 0.38 L Nucleated RBC % 0 Differential Comment Platelet Estimate RBC Morphology PT INR APTT D-Dimer Quant (PE/DVT) Sodium Potassium Chloride Carbon Dioxide Anion Gap BUN Creatinine Estim Creat Clear Calc Est GFR (MDRD) Af Amer Est GFR (MDRD) Non-Af BUN/Creatinine Ratio Glucose Lactic Acid 2.5 H* 1.7 Calcium Magnesium Ferritin Total Bilirubin AST ALT Alkaline Phosphatase Lactate Dehydrogenase Troponin I C-React Prot Ext Range B-Natriuretic Peptide Total Protein Albumin Globulin Albumin/Globulin Ratio Procalcitonin Blood Type Antibody Screen - Other Studies Radiology: [] reviewed Other Studies: [] Route of nutrition/ use of supplements: [] Nutritional Intake: [] IV Site: [] Fritz Catheter: [] - Physical Exam General: Alert, Oriented x3, Cooperative, No apparent distress HEENT: Atraumatic, PERRLA, EOMI Neck: Supple, No Nodes Lungs: Diminished Cardiovascular: Regular rate, Regular Rhythm Abdomen: Soft, Non Tender, Non-Distended Extremities: No edema Skin: No rashes IV Site: Peripheral, without redness Musculoskeletal: No Tenderness to Palpation of Joints or Extremities Neurological: Cranial nerves II-XII grossly intact - Assessment/Plan Antibiotics: [] Assessment/Plan: [] Active and Suspected Problems Pneumonia due to COVID-19 virus (Acute) Hypoxia (Acute) Elevated BP without diagnosis of hypertension (Acute) covid with hypoxia - sx started 03/08 but presented with sx consistent with ongoing viral replication. Much better today on remdesivir and dex, will change dex to po. CT neg for PE, d-dimer was mildly elevated, on lovenox 40mg bid. Sats as low as 94% on RA. Ok for discharge tomorrow with one more week of quarantine. Recommended family at home quarantine and get tested if possible. Complete 10 days total of dex, recommend 2 weeks xarelto 10mg daily or eliquis 2.5mg bid due to hypoxia and elevated d-dimer at discharge. Will follow, thank you
[2020-03-24] MEDS: Acetaminophen 325 MG Tablet 650 MG PO (21:48)
[2020-03-24] MEDS: MELATONIN 3 MG TABLET PO (21:48)
[2020-03-25 05:25] VITALS: BP 137/84; PULSE 48; RESP 20; TEMP 37.1; O2SAT 95
--- NOTE | 2020-03-25 07:46 | PN_ITS ---
Patient Problems: Active and Suspected Problems Pneumonia due to COVID-19 virus (Acute) Hypoxia (Acute) Elevated BP without diagnosis of hypertension (Acute) Objective: Heart rate in the upper 40s and 50s. Blood pressure in normal range. Patient pulse ox 94%. Vitals/I&O's: Vital Signs Temp Pulse Resp BP Pulse Ox 98.8 F 48 L 20 H 137/84 H 95 03/25/20 05:25 03/25/20 05:25 03/25/20 05:25 03/25/20 05:25 03/25/20 05:25 Oxygen Flow Rate (L/min) 1 Oxygen Delivery Method Room Air Weight: 217 lb 12.8 oz Body Mass Index (BMI) 30.1 Intake and Output for Last 24 Hours 03/23/20 03/24/20 03/25/20 23:59 23:59 23:59 Intake Total 1000 / 1000 3080 / 3080 Balance 1000 / 1000 3080 / 3080 Microbiology Past 72 Hours 03/24/20 00:30 Sputum, Expectorated/Coughed Gram Stain - Final 03/24/20 05:33 Mucosa - Nasopharyngeal Respiratory Panel (PCR) - Final 03/24/20 00:30 Urine, Clean Catch Legionella Antigen - Final 03/24/20 00:30 Urine, Clean Catch Streptococcus pneumoniae Antigen (M - Final Laboratory Results 03/24/20 07:20: Lactic Acid 1.7 Current Medications Acetaminophen (Acetaminophen 325 Mg Tablet) 650 mg PO Q6H PRN PRN PRN Reason: Pain Score 1-10/Temp > 100.7 F Last Admin: 03/24/20 21:48 Dose: 650 mg Documented by: Al Hydroxide/Mg Hydroxide (Mag Hydrox/Al Hydrox/Simeth 30 Ml Udc) 30 ml PO Q6H PRN PRN PRN Reason: Gastric Burning Albuterol Sulfate (Albuterol Sulfate 18 Gm Inhaler (200 Puffs)) 4 - 8 puff IH Q4H PRN PRN PRN Reason: Dyspnea, wheezing Last Admin: 03/24/20 01:10 Dose: 4 puff Documented by: Dexamethasone Sodium Phosphate (Dexamethasone 10 Mg/Ml Vial) 6 mg IV DAILY MACEY Stop: 04/02/20 10:01 Last Admin: 03/24/20 08:48 Dose: 6 mg Documented by: Enoxaparin Sodium (Enoxaparin 30 Mg/0.3 Ml Syringe) 30 mg SC BID [facility] Last Admin: 03/24/20 21:48 Dose: 30 mg Documented by: Famotidine (Famotidine 20 Mg Tablet) 20 mg PO BID [facility] Last Admin: 03/24/20 21:48 Dose: 20 mg Documented by: Febuxostat (Febuxostat 40 Mg Tablet) 40 mg PO DAILY [facility] Last Admin: 03/24/20 08:48 Dose: 40 mg Documented by: Gabapentin (Gabapentin 100 Mg Capsule) 100 mg PO TIDCM [facility] Last Admin: 03/24/20 17:02 Dose: 100 mg Documented by: Guaifenesin (Guaifenesin 10 Ml Udc (200mg/10ml)) 20 ml PO Q4H PRN PRN PRN Reason: COUGH Hydralazine HCl (Hydralazine 20 Mg/Ml Vial) 10 mg IV Q4H PRN PRN PRN Reason: SBP > 160 Remdesivir 100 mg/ Sodium (Chloride) 250 mls @ 125 mls/hr IV DAILY@2200 [facility] Stop: 03/27/20 23:59 Last Infusion: 03/24/20 23:55 Dose: Infused Documented by: Ibuprofen (Ibuprofen 600 Mg Tablet) 600 mg PO Q8H PRN PRN PRN Reason: Fever, pain -01/02 Last Admin: 03/24/20 03:36 Dose: 600 mg Documented by: Melatonin (Melatonin 3 Mg Tablet) 3 mg PO QHS PRN PRN PRN Reason: INSOMNIA Last Admin: 03/24/20 21:48 Dose: 3 mg Documented by: Miscellaneous Information (Inhaler, Assist Devices 1 Each Spacer) 1 each INHALATION PRN PRN PRN Reason: WITH ALBUTEROL MDI Last Admin: 03/24/20 01:01 Dose: 1 each Documented by: Nitroglycerin (Nitroglycerin (Inpatient Use) 0.4 Mg Tab.Subl) 0.4 mg SUBLINGUAL Q5M PRN PRN Reason: CARDIAC/CHEST PAIN Ondansetron HCl (Ondansetron 4 Mg/2 Ml Vial) 4 mg IV Q8H PRN PRN PRN Reason: NAUSEA/VOMITING Prochlorperazine Edisylate (Prochlorperazine 10 Mg/2 Ml Vial) 5 mg IV Q4H PRN PRN PRN Reason: Breakthrough nausea/vomiting Psyllium Hydrophilic Mucilloid (Psyllium 1 Packet) 1 packet PO DAILY PRN PRN PRN Reason: Constipation Senna/Docusate Sodium (Senna/Docusate Sodium 1 Tablet) 2 tablet PO BID PRN PRN PRN Reason: Constipation Sodium Chloride (0.9% Saline Lock 10 Ml Syringe) 10 - 40 ml IV UD PRN PRN Reason: SALINE FLUSH Throat Lozenges (Benzocaine/Menthol 1 Lozenge) 1 lozenge MUCOUS MEM Q2H PRN PRN PRN Reason: SORE THROAT STROKE Vital Signs/Narrative: Vital Signs Temp Pulse Resp BP Pulse Ox 03/25/20 05:25 98.8 F 48 L 20 H 137/84 H 95 Medical Necessity - Tobacco Use Smoking Status: Never smoker Tobacco Use: Non-smoker Assessment/Plan All Active Problems Pneumonia due to COVID-19 virus (Acute) Hypoxia (Acute) Elevated BP without diagnosis of hypertension (Acute) The patient is a 69 y/o M history of obesity, Gout who was admitted on Covid cohort floor 03/23/20 with history of recent COVID diagnosis 03/10/20 with notes of breath, chest tightness, fever and chills, malaise and weakness since 2013. 1. Acute COVID-19 bilateral pneumonia with mild hypoxia: Patient has elevated lactic acid two-point 5 repeat was normal. Elevated inflammatory markers LDH, CRP, and D-dimer. BNP elevated 172 but not more than 400 therefore congestive heart failure unlikely. CTA chest was done which showed no pulmonary embolism arterial dissection. Bilateral pneumonia. On IV Decadron, remdesivir. ID consult. Continue with chest physiotherapy and incentive spirometry. Urinary antigens are negative. Respiratory panel negative. Blood cultures x2 and sputum culture are pending. 2. Acute Renal Insufficiency or chronic Kidney Disease Stage III: Patient does not have any previous labs. Admission BUN/Cr 21/1.35. Repeat labs shows BUN/creatinine 18/1.12. 3. Elevated BP without HTN diagnosis: ED blood pressure was elevated. Currently 123/71 4. Obesity: Weight loss and lifestyle changes encouraged. 5. Gout: We will continue patient home febuxostat stat regimen 6. DVT prophylaxis: SCDs, lovenox. Clinical Impression(s) from Imaging Studies Chest CTA 03/23/20 21:14 IMPRESSION: CTA chest examination, without a demonstrated pulmonary embolism or arterial dissection. Bilateral pneumonia. Microbiology Past 72 Hours 03/24/20 00:30 Sputum, Expectorated/Coughed Gram Stain - Final 03/24/20 05:33 Mucosa - Nasopharyngeal Respiratory Panel (PCR) - Final 03/24/20 00:30 Urine, Clean Catch Legionella Antigen - Final 03/24/20 00:30 Urine, Clean Catch Streptococcus pneumoniae Antigen (M - Final Laboratory Results 03/23/20 20:14: WBC 14.8 H, RBC 4.92, Hgb 15.6, Hct 45.8, MCV 93.1, MCH 31.7, MCHC 34.1, RDW Std Deviation 43.8, RDW Coeff of Candido 12.8, Plt Count 163, MPV 10.5, Immature Gran % (Auto) 0.800, Neut % (Auto) 91.6 H, Lymph % (Auto) 3.8 L, [place] % (Auto) 3.7, Eos % (Auto) 0.0, Baso % (Auto) 0.1, Absolute Neuts (auto) 13.5 H, Absolute Lymphs (auto) 0.56 L, Nucleated RBC % 0, Differential Comment SCANNED, Platelet Estimate ADEQUATE, RBC Morphology NORM C+C 03/23/20 20:14: PT 13.8, INR 1.1, APTT 30.3, D-Dimer Quant (PE/DVT) 0.68 H* 03/23/20 20:14: Sodium 141, Potassium 3.8, Chloride 108 H, Carbon Dioxide 24.0, Anion Gap 9, BUN 21 H, Creatinine 1.35 H, Estim Creat Clear Calc 55.78, Est GFR (MDRD) Af Amer 68, Est GFR (MDRD) Non-Af 56 L, BUN/Creatinine Ratio 15.6, Glucose 125 H, Calcium 8.6, Total Bilirubin 0.60, AST 43 H, ALT 41, Alkaline Phosphatase 78, Troponin I < 0.015, Total Protein 7.1, Albumin 3.3, Globulin 3.8, Albumin/Globulin Ratio 0.9 03/23/20 20:14: Magnesium 2.1, Ferritin 251, Lactate Dehydrogenase 427 H, C- React Prot Ext Range 65.60 H 03/23/20 20:14: B-Natriuretic Peptide 172.3 H 03/23/20 20:14: Procalcitonin 0.08 03/23/20 21:38: Lactic Acid 2.5 H* 03/24/20 03:14: Blood Type A NEGATIVE, Antibody Screen NEGATIVE 03/24/20 03:14: Sodium 139, Potassium 3.7, Chloride 110 H, Carbon Dioxide 22.0, Anion Gap 7, BUN 18, Creatinine 1.12, Estim Creat Clear Calc 67.23, Est GFR (MDRD) Af Amer 84, Est GFR (MDRD) Non-Af 69, BUN/Creatinine Ratio 16.1, Glucose 146 H, Calcium 8.1 L, Total Bilirubin 0.60, AST 37, ALT 35, Alkaline Phosphatase 64, Total Protein 6.4, Albumin 2.9 L, Globulin 3.5, Albumin/Globulin Ratio 0.8 L 03/24/20 03:14: WBC 12.5 H, RBC 4.60, Hgb 14.7, Hct 42.8, MCV 93.0, MCH 32.0, MCHC 34.3, RDW Std Deviation 43.5, RDW Coeff of Candido 12.8, Plt Count 155, MPV 10.3, Immature Gran % (Auto) 1.000 H, Neut % (Auto) 93.3 H, Lymph % (Auto) 3.0 L , [place] % (Auto) 2.6, Eos % (Auto) 0.0, Baso % (Auto) 0.1, Absolute Neuts (auto) 11.6 H, Absolute Lymphs (auto) 0.38 L, Nucleated RBC % 0 03/24/20 03:14: Lactic Acid 2.5 H* 03/24/20 07:20: Lactic Acid 1.7
--- NOTE | 2020-03-25 07:47 | PCM.DC ---
- Discharge Diagnoses Current Active Problems: Current Active and Chronic Problems Pneumonia due to COVID-19 virus (Acute) Hypoxia (Acute) Elevated BP without diagnosis of hypertension (Acute) Gout (Chronic) Obesity (BMI 30.0-34.9) (Chronic) You will use the following diet at home:: Cardiac Your food should be the consistency of: Regular Discharge Activity: May Not Drive Weight Bearing Status: Weight bearing as tolerated Call your doctor if you observe: Fever of 101 or Higher, Coldness, Increased Pain, Numbness or Tingling, Change in Color, Inability to urinate, Inability to have a bowel movement, Shortness of breath, Dizziness, Fainting spells, Swelling in the ankles, Chest pain, Prolonged hiccoughing, Increased palpitations (irregular heartbeat), Calf discomfort, Uncontrolled pain Additional Instructions: Advised self quarantine for 1 week April 01, 2020 Allergies/Adverse Reactions: Allergies No Known Allergies Allergy (Verified 03/23/20 19:36) Medications to take at Discharge Acetaminophen [Tylenol] 500 - 1,000 mg PO Q6H PRN PRN 03/23/20 Albuterol IH (ProAir) 1 - 2 puff INHALATION Q4H PRN 03/23/20 Febuxostat 40 mg PO DAILY 03/23/20 Apixaban [Eliquis] 2.5 mg PO BID #14 tab 03/25/20 Dexamethasone [Decadron] 6 mg PO DAILY 7 Days #7 tab 03/25/20 Guaifenesin [Mucinex] 1,200 mg PO BID #14 tab.er.12h 03/25/20 The following prescriptions were given: Dexamethasone [Decadron] 6 mg PO DAILY 7 Days #7 tab Transmission Status: Pending to [facility]/pharmacy #[id number] Apixaban [Eliquis] 2.5 mg PO BID #14 tab Transmission Status: Pending to [facility]/pharmacy #[id number] Guaifenesin [Mucinex] 1,200 mg PO BID #14 tab.er.12h Transmission Status: Pending to [facility]/pharmacy #[id number] Primary Care Physician: Geo Ladd DO [Primary Care Provider] - Please follow up with your Primary Care Physician in: in 1-2 week Test Results: Test results from this visit will be discussed in further detail at your follow-up appointment, if applicable. Please Follow Up With: Geo Jacobs MD When: To pneumonia
--- NOTE | 2020-03-25 07:47 | PCM.DC.SUM ---
Discharge Date and Diagnosis - Problem List Patient Problems: Active and Suspected Problems Pneumonia due to COVID-19 virus (Acute) Hypoxia (Acute) Elevated BP without diagnosis of hypertension (Acute) Date of Admission: 03/23/20 Date of Discharge: 03/25/20 - Primary Discharge Diagnosis Acute Problems: Active Problems Pneumonia due to COVID-19 virus (Acute) Hypoxia (Acute) Elevated BP without diagnosis of hypertension (Acute) - Secondary Discharge Diagnosis Chronic Problems: Chronic Problems Gout (Chronic) Obesity (BMI 30.0-34.9) (Chronic) Hospital Course and Treatment Summary of Care Provided: The patient is a 69 y/o M history of obesity, Gout who was admitted on Covid cohort floor 03/23/20 with history of recent COVID diagnosis 03/10/20 with notes of breath, chest tightness, fever and chills, malaise and weakness since 03/08/2020 1. Acute COVID-19 bilateral pneumonia with mild hypoxia: Patient has elevated lactic acid two-point 5 repeat was normal. Elevated inflammatory markers LDH, CRP, and D-dimer. BNP elevated 172 but not more than 400 therefore congestive heart failure unlikely. CTA chest was done which showed no pulmonary embolism arterial dissection. Bilateral pneumonia. On IV Decadron, remdesivir. ID consult. Continue with chest physiotherapy and incentive spirometry. Urinary antigens are negative. Respiratory panel negative. Patient seen by ID. Agree with the discharge on Decadron to complete a total of 10 days and 2 weeks of NOAC. I personally called Patient's Florencia Gómez, phone #[phone] and talk to her and daughter informed about the hospital course, physical exam findings, labs, imaging and my discussion with Dr. Perdomo, medical reimbursement specialist [facility] who called me in the morning to inform about the patient hospitalist in [facility] and the 's concern regarding discharge. I further discussed with ID and the nursing staff. 2. Acute Renal Insufficiency or chronic Kidney Disease Stage III: Patient does not have any previous labs. Admission BUN/Cr 21/1.35. Repeat labs shows BUN/creatinine 18/1.12. 3. Elevated BP without HTN diagnosis: ED blood pressure was elevated. The blood pressure is in normal range. 4. Obesity: Weight loss and lifestyle changes encouraged. 5. Gout: We will continue patient home febuxostat stat regimen 6. DVT prophylaxis: SCDs, lovenox. Discharge medication reconciliation done. Discharge follow-up instructions completed. Discharge process discussed with the patient and all questions were answered to patient's satisfaction. Patient discharge medications was personally discussed with patient, his and daughter. Advised to maintain healthy lifestyle, daily temperature check and pulse ox. Patient pulse ox was 98% on room air and 93% on ambulation. Total time spent, exact 35 minutes on discharge meds reconciliation, examination, coordination of care with nurses and ancillary staff, review of imaging and blood test and discussion with the patient on follow-up instructions] Patient Problems: Active and Suspected Problems Pneumonia due to COVID-19 virus (Acute) Hypoxia (Acute) Elevated BP without diagnosis of hypertension (Acute) Objective: Patient has mild dry cough but not getting short of breath on walking. As per the nursing staff he was even doing push-ups in room. ID saw yesterday and advised discharge home on Decadron and Eliquis for 2 weeks. Physical exam General: Alert, Oriented x3, Cooperative HEENT: Atraumatic, PERRLA, EOMI, Normocephalic Oral: No Gingival or Mucosal Lesions/ Ulcerations Neck: Supple, No JVD, Negative Carotid Bruits Lungs: Air entry diminished in bilateral lung bases. No crepitation/rhonchi Cardiovascular: Regular rate, Regular Rhythm, Normal S1, Normal S2, No murmurs Abdomen: Bowel Sounds Present, Soft, Non Tender, Non-Distended : No renal angle tenderness. No suprapubic tenderness. Extremities: No edema, Capillary Refill Less than 3 Seconds Skin: No rashes, No breakdown Musculoskeletal: No Tenderness to Palpation of Joints or Extremities Neurological: Cranial nerves II-XII grossly intact, Deep Tendon Reflexes 2+/4 and Symmetrical, Neuro grossly intact Psych/Mental Status: Normal Affect, Appropriate. - Physical Exam Vitals/I&O's: Vital Signs Temp Pulse Resp BP Pulse Ox 98.8 F 48 L 20 H 137/84 H 95 03/25/20 05:25 03/25/20 05:25 03/25/20 05:25 03/25/20 05:25 03/25/20 05:25 Oxygen Flow Rate (L/min) 1 Oxygen Delivery Method Room Air Weight: 217 lb 12.8 oz Body Mass Index (BMI) 30.1 Intake and Output for Last 24 Hours 03/23/20 03/24/20 03/25/20 23:59 23:59 23:59 Intake Total 1000 / 1000 3080 / 3080 Balance 1000 / 1000 3080 / 3080 Microbiology Past 72 Hours 03/24/20 00:30 Sputum, Expectorated/Coughed Gram Stain - Final 03/24/20 05:33 Mucosa - Nasopharyngeal Respiratory Panel (PCR) - Final 03/24/20 00:30 Urine, Clean Catch Legionella Antigen - Final 03/24/20 00:30 Urine, Clean Catch Streptococcus pneumoniae Antigen (M - Final Laboratory Results 03/24/20 07:20: Lactic Acid 1.7 Current Medications Acetaminophen (Acetaminophen 325 Mg Tablet) 650 mg PO Q6H PRN PRN PRN Reason: Pain Score 1-10/Temp > 100.7 F Last Admin: 03/24/20 21:48 Dose: 650 mg Documented by: Al Hydroxide/Mg Hydroxide (Mag Hydrox/Al Hydrox/Simeth 30 Ml Udc) 30 ml PO Q6H PRN PRN PRN Reason: Gastric Burning Albuterol Sulfate (Albuterol Sulfate 18 Gm Inhaler (200 Puffs)) 4 - 8 puff IH Q4H PRN PRN PRN Reason: Dyspnea, wheezing Last Admin: 03/24/20 01:10 Dose: 4 puff Documented by: Dexamethasone Sodium Phosphate (Dexamethasone 10 Mg/Ml Vial) 6 mg IV DAILY [facility] Stop: 04/02/20 10:01 Last Admin: 03/24/20 08:48 Dose: 6 mg Documented by: Enoxaparin Sodium (Enoxaparin 30 Mg/0.3 Ml Syringe) 30 mg SC BID [facility] Last Admin: 03/24/20 21:48 Dose: 30 mg Documented by: Famotidine (Famotidine 20 Mg Tablet) 20 mg PO BID [facility] Last Admin: 03/24/20 21:48 Dose: 20 mg Documented by: Febuxostat (Febuxostat 40 Mg Tablet) 40 mg PO DAILY [facility] Last Admin: 03/24/20 08:48 Dose: 40 mg Documented by: Gabapentin (Gabapentin 100 Mg Capsule) 100 mg PO TIDCM [facility] Last Admin: 03/24/20 17:02 Dose: 100 mg Documented by: Guaifenesin (Guaifenesin 10 Ml Udc (200mg/10ml)) 20 ml PO Q4H PRN PRN PRN Reason: COUGH Hydralazine HCl (Hydralazine 20 Mg/Ml Vial) 10 mg IV Q4H PRN PRN PRN Reason: SBP > 160 Remdesivir 100 mg/ Sodium (Chloride) 250 mls @ 125 mls/hr IV DAILY@2200 [facility] Stop: 03/27/20 23:59 Last Infusion: 03/24/20 23:55 Dose: Infused Documented by: Ibuprofen (Ibuprofen 600 Mg Tablet) 600 mg PO Q8H PRN PRN PRN Reason: Fever, pain -01/02 Last Admin: 03/24/20 03:36 Dose: 600 mg Documented by: Melatonin (Melatonin 3 Mg Tablet) 3 mg PO QHS PRN PRN PRN Reason: INSOMNIA Last Admin: 03/24/20 21:48 Dose: 3 mg Documented by: Miscellaneous Information (Inhaler, Assist Devices 1 Each Spacer) 1 each INHALATION PRN PRN PRN Reason: WITH ALBUTEROL MDI Last Admin: 03/24/20 01:01 Dose: 1 each Documented by: Nitroglycerin (Nitroglycerin (Inpatient Use) 0.4 Mg Tab.Subl) 0.4 mg SUBLINGUAL Q5M PRN PRN Reason: CARDIAC/CHEST PAIN Ondansetron HCl (Ondansetron 4 Mg/2 Ml Vial) 4 mg IV Q8H PRN PRN PRN Reason: NAUSEA/VOMITING Prochlorperazine Edisylate (Prochlorperazine 10 Mg/2 Ml Vial) 5 mg IV Q4H PRN PRN PRN Reason: Breakthrough nausea/vomiting Psyllium Hydrophilic Mucilloid (Psyllium 1 Packet) 1 packet PO DAILY PRN PRN PRN Reason: Constipation Senna/Docusate Sodium (Senna/Docusate Sodium 1 Tablet) 2 tablet PO BID PRN PRN PRN Reason: Constipation Sodium Chloride (0.9% Saline Lock 10 Ml Syringe) 10 - 40 ml IV UD PRN PRN Reason: SALINE FLUSH Throat Lozenges (Benzocaine/Menthol 1 Lozenge) 1 lozenge MUCOUS MEM Q2H PRN PRN PRN Reason: SORE THROAT Home Medications: Medications to take at Discharge Acetaminophen [Tylenol] 500 - 1,000 mg PO Q6H PRN PRN 03/23/20 Albuterol IH (ProAir) 1 - 2 puff INHALATION Q4H PRN 03/23/20 Febuxostat 40 mg PO DAILY 03/23/20 Apixaban [Eliquis] 2.5 mg PO BID #14 tab 03/25/20 Dexamethasone [Decadron] 6 mg PO DAILY 7 Days #7 tab 03/25/20 Guaifenesin [Mucinex] 1,200 mg PO BID #14 tab.er.12h 03/25/20 Following Prescriptions Were Given to Patient: Dexamethasone [Decadron] 6 mg PO DAILY 7 Days #7 tab Transmission Status: Received by [facility]/pharmacy #[id number] Apixaban [Eliquis] 2.5 mg PO BID #14 tab Transmission Status: Received by [facility]/pharmacy #[id number] Guaifenesin [Mucinex] 1,200 mg PO BID #14 tab.er.12h Transmission Status: Received by [facility]/pharmacy #[id number] Primary Care Physician: Geo Ladd DO [Primary Care Provider] - Medical Necessity - Tobacco Use Smoking Status: Never smoker Tobacco Use: Non-smoker Meaningful Use Info Meaningful Use Diagnoses (Choose all that apply): None applicable Inpatient E&M: 70496 Disch Hosp
[2020-03-25 08:46] LABS: Absolute Lymphocyte Count 0.72 X10^3/uL (0.83-4.51); Absolute Neutrophil Count 7.9 X10^3/uL (2.0-7.7); Basophil# 0.01 X10^3/uL; Basophil% 0.1 % (0-1); Hematocrit 45.5 % (40-54); Hemoglobin 15.5 g/dL (13.0-16.5); Lymphocyte # 0.72 X10^3/ul (4.0); Lymphocyte % 7.7 % (19-41); Mean Corp Hgb Conc 34.1 g/dL (32-36); Mean Corpuscular Hgb 31.8 pg (27.0-32.0); Mean Corpuscular Volume 93.2 fL (80-94); Mean Platelet Vol. 10.5 fl (6.2-12.0); Monocyte# 0.61 X10^3/uL; Monocyte% 6.5 % (0-10); NRBC Flagged by Analyzer 0 % (0-5); Neutrophil # 7.93 X10^3/uL (2.7-7.7); Neutrophil % 85.1 % (47-70); Platelet Count 168 K/mm3 (150-450); RBC Distribution Width CV 12.8 % (11.6-14.6); RBC Distribution Width SD 43.9 fl (35.1-43.9); Red Blood Count 4.88 M/mm3 (4.6-6.2); White Blood Count 9.3 K/mm3 (4.4-11.0)
[2020-03-25] MEDS: dexAMETHasone 10 MG/ML Vial 6 MG IV (09:07)
[2020-03-25] MEDS: Gabapentin 100 MG Capsule PO ×2 (09:07→11:58)
[2020-03-25] MEDS: Febuxostat 40 MG TABLET PO (09:08)
[2020-03-25] MEDS: Famotidine 20 MG Tablet PO (09:08)
[2020-03-25] MEDS: Enoxaparin 30 MG/0.3 ML Syringe SC (09:08)
[2020-03-25 09:37] LABS: ALB/GLOB Ratio 0.9 RATIO (0.9-2.4); AST(SGOT) 39 U/L (15-37); Alanine Aminotransfer ALT/SGPT 43 U/L (16-61); Alkaline Phosphatase 65 U/L (45-117); Anion Gap 6 (5-15); BUN 21 mg/dL (7-18); BUN/Creat Ratio 21.7 RATIO (10-20); Calcium,Total 8.6 mg/dL (8.5-10.1); Chloride 113 mmol/L (98-107); Creatinine, Serum 0.97 mg/dL (0.70-1.30); EST Glomerular Filtration Rate 82 mL/min (>60); Est Glom Filt Rate - Afr Amer 99 mL/min (>60); Estimated Creatinine Clearance 77.63 ml/min; Globulin 3.2 g/dL (2.2-4.2); Glucose 119 mg/dL (74-106); Potassium 3.8 mmol/L (3.5-5.1); Protein, Total 6.2 g/dL (6.4-8.2); Sodium Level 144 mmol/L (136-145)
[2020-03-25 10:44] VITALS: BP 126/66; PULSE 57; RESP 16; TEMP 36.5; O2SAT 98
[2020-03-25 12:38] VITALS: O2SAT 93; O2SAT 98
--- NOTE | 2020-03-25 13:01 | PCM.PN.ID ---
Patient Problems: Active and Suspected Problems Pneumonia due to COVID-19 virus (Acute) Hypoxia (Acute) Elevated BP without diagnosis of hypertension (Acute) Subjective: Feeling better, home today, remains off O2, no fever - Physical Exam Vitals/I&O's: Vital Signs Temp Pulse Resp BP Pulse Ox 97.7 F L 57 L 16 126/66 H 98 03/25/20 10:44 03/25/20 10:44 03/25/20 10:44 03/25/20 10:44 03/25/20 12:38 Oxygen Flow Rate (L/min) 1 Oxygen Delivery Method Room Air Weight: 98.792 kg Body Mass Index (BMI) 30.1 Intake and Output for Last 24 Hours 03/23/20 03/24/20 03/25/20 23:59 23:59 23:59 Intake Total 1000 / 1000 3080 / 3080 Balance 1000 / 1000 3080 / 3080 General: Alert, Cooperative, No apparent distress Lungs: Clear to auscultation, Normal air movement Cardiovascular: Regular rate, Regular Rhythm Abdomen: Soft, Non Tender, Non-Distended Skin: No rashes Microbiology Past 72 Hours 03/24/20 00:30 Sputum, Expectorated/Coughed Gram Stain - Final 03/24/20 00:30 Sputum, Expectorated/Coughed Respiratory Culture - Preliminary Appears to be normal respiratory aster. Further studies to follow. 03/24/20 05:33 Mucosa - Nasopharyngeal Respiratory Panel (PCR) - Final 03/24/20 00:30 Urine, Clean Catch Legionella Antigen - Final 03/24/20 00:30 Urine, Clean Catch Streptococcus pneumoniae Antigen (M - Final Laboratory Results 03/25/20 08:38: WBC 9.3, RBC 4.88, Hgb 15.5, Hct 45.5, MCV 93.2, MCH 31.8, MCHC 34.1, RDW Std Deviation 43.9, RDW Coeff of Candido 12.8, Plt Count 168, MPV 10.5, Immature Gran % (Auto) 0.600, Neut % (Auto) 85.1 H, Lymph % (Auto) 7.7 L, [place] % (Auto) 6.5, Eos % (Auto) 0.0, Baso % (Auto) 0.1, Absolute Neuts (auto) 7.9 H, Absolute Lymphs (auto) 0.72 L, Nucleated RBC % 0 03/25/20 08:38: Sodium 144, Potassium 3.8, Chloride 113 H, Carbon Dioxide 25.0, Anion Gap 6, BUN 21 H, Creatinine 0.97, Estim Creat Clear Calc 77.63, Est GFR (MDRD) Af Amer 99, Est GFR (MDRD) Non-Af 82, BUN/Creatinine Ratio 21.7 H, Glucose 119 H, Calcium 8.6, Total Bilirubin 0.60, AST 39 H, ALT 43, Alkaline Phosphatase 65, Total Protein 6.2 L, Albumin 3.0 L, Globulin 3.2, Albumin/Globulin Ratio 0.9 Current Medications Acetaminophen (Acetaminophen 325 Mg Tablet) 650 mg PO Q6H PRN PRN PRN Reason: Pain Score 1-10/Temp > 100.7 F Last Admin: 03/24/20 21:48 Dose: 650 mg Documented by: Al Hydroxide/Mg Hydroxide (Mag Hydrox/Al Hydrox/Simeth 30 Ml Udc) 30 ml PO Q6H PRN PRN PRN Reason: Gastric Burning Albuterol Sulfate (Albuterol Sulfate 18 Gm Inhaler (200 Puffs)) 4 - 8 puff IH Q4H PRN PRN PRN Reason: Dyspnea, wheezing Last Admin: 03/24/20 01:10 Dose: 4 puff Documented by: Dexamethasone Sodium Phosphate (Dexamethasone 10 Mg/Ml Vial) 6 mg IV DAILY [facility] Stop: 04/02/20 10:01 Last Admin: 03/25/20 09:07 Dose: 6 mg Documented by: Enoxaparin Sodium (Enoxaparin 30 Mg/0.3 Ml Syringe) 30 mg SC BID [facility] Last Admin: 03/25/20 09:08 Dose: 30 mg Documented by: Famotidine (Famotidine 20 Mg Tablet) 20 mg PO BID [facility] Last Admin: 03/25/20 09:08 Dose: 20 mg Documented by: Febuxostat (Febuxostat 40 Mg Tablet) 40 mg PO DAILY [facility] Last Admin: 03/25/20 09:08 Dose: 40 mg Documented by: Gabapentin (Gabapentin 100 Mg Capsule) 100 mg PO TIDCM [facility] Last Admin: 03/25/20 11:58 Dose: 100 mg Documented by: Guaifenesin (Guaifenesin 10 Ml Udc (200mg/10ml)) 20 ml PO Q4H PRN PRN PRN Reason: COUGH Hydralazine HCl (Hydralazine 20 Mg/Ml Vial) 10 mg IV Q4H PRN PRN PRN Reason: SBP > 160 Remdesivir 100 mg/ Sodium (Chloride) 250 mls @ 125 mls/hr IV DAILY@2200 [facility] Stop: 03/27/20 23:59 Last Infusion: 03/24/20 23:55 Dose: Infused Documented by: Ibuprofen (Ibuprofen 600 Mg Tablet) 600 mg PO Q8H PRN PRN PRN Reason: Fever, pain -01/02 Last Admin: 03/24/20 03:36 Dose: 600 mg Documented by: Melatonin (Melatonin 3 Mg Tablet) 3 mg PO QHS PRN PRN PRN Reason: INSOMNIA Last Admin: 03/24/20 21:48 Dose: 3 mg Documented by: Miscellaneous Information (Inhaler, Assist Devices 1 Each Spacer) 1 each INHALATION PRN PRN PRN Reason: WITH ALBUTEROL MDI Last Admin: 03/24/20 01:01 Dose: 1 each Documented by: Nitroglycerin (Nitroglycerin (Inpatient Use) 0.4 Mg Tab.Subl) 0.4 mg SUBLINGUAL Q5M PRN PRN Reason: CARDIAC/CHEST PAIN Ondansetron HCl (Ondansetron 4 Mg/2 Ml Vial) 4 mg IV Q8H PRN PRN PRN Reason: NAUSEA/VOMITING Prochlorperazine Edisylate (Prochlorperazine 10 Mg/2 Ml Vial) 5 mg IV Q4H PRN PRN PRN Reason: Breakthrough nausea/vomiting Psyllium Hydrophilic Mucilloid (Psyllium 1 Packet) 1 packet PO DAILY PRN PRN PRN Reason: Constipation Senna/Docusate Sodium (Senna/Docusate Sodium 1 Tablet) 2 tablet PO BID PRN PRN PRN Reason: Constipation Sodium Chloride (0.9% Saline Lock 10 Ml Syringe) 10 - 40 ml IV UD PRN PRN Reason: SALINE FLUSH Throat Lozenges (Benzocaine/Menthol 1 Lozenge) 1 lozenge MUCOUS MEM Q2H PRN PRN PRN Reason: SORE THROAT Medical Necessity - Tobacco Use Smoking Status: Never smoker Tobacco Use: Non-smoker Route of nutrition/ use of supplements: [] Nutritional Intake: [] IV Site: [] Fritz Catheter: [] - Assessment/Plan Antibiotics: [] Assessment/Plan: [] Active and Suspected Problems Pneumonia due to COVID-19 virus (Acute) Hypoxia (Acute) Elevated BP without diagnosis of hypertension (Acute) covid with hypoxia - sx started 03/08 but presented with sx consistent with ongoing viral replication. Much better today on remdesivir and dex. CT neg for PE, d-dimer was mildly elevated, on lovenox 40mg bid. Sats as low as 94% on RA. Ok for discharge today with one more week of quarantine. Recommended family at home quarantine and get tested if possible. Complete 10 days total of dex, recommend 2 weeks xarelto 10mg daily or eliquis 2.5mg bid due to hypoxia and elevated d-dimer at discharge. Will follow, d/w Dr. Ritter and nursing.
== END 2020-03-25 13:55 | disposition home or self-care (01) | DRG 177 ==
LOC: ED 22:30 → MS2 03-24 06:25
PROVIDERS: Admitting Provider Family Medicine; Emergency Provider Emergency Medicine; PCP Preventive Medicine Occupational Medicine; Visit Provider Internal Medicine
DX: U07.1 COVID-19 (principal); J12.89 Other viral pneumonia; R09.02 Hypoxemia; M1A.9XX0 Chronic gout, unspecified, without tophus (tophi); G62.9 Polyneuropathy, unspecified; N18.30 Chronic kidney disease, stage 3 unspecified; R03.0 Elevated blood-pressure reading, without diagnosis of hypertension; E66.9 Obesity, unspecified; Z68.30 Body mass index [BMI] 30.0-30.9, adult; Z79.899 Other long term (current) drug therapy; Z87.442 Personal history of urinary calculi; Z96.641 Presence of right artificial hip joint
CPT/HCPCS: 36415; 71275; 80053; 82728; 83605; 83615; 83735; 83880; 84145; 84484; 85025; 85379; 85610; 85730; 86140; 86850; 86900; 86901; 87040; 87070; 87205; 87449; 87633; 93005; 99251; 99285; J7030; J7040; J7050; Q9967; A4216; G0463

== ENCOUNTER 2024-08-19 10:00 | Outpatient (RCR) | payer MEDICARE, OTHER, SELFPAY ==
--- NOTE | 2024-06-02 16:00 | HP.PTEVAL_ITS ---
Patient's Visit Information Visit Information Visit Information: KADIE TERRY is a 73 year old M referred to Physical Therapy by ANDREY CHILDERS with a diagnosis of SPINAL STENOSIS. Date of Evaluation: 05/30/24 Physical Therapist: Sherley Sadler PT, Cert MDT Visit Plan Frequency: 2x /Week Duration: 4-6 Weeks Plan: POSTURE CORRECTION/STRENGTHENING, INSTRUCTION IN APPROPRIATE BODY MECHANICS AND ACTIVITY MODIFICATIONS. DLS STARTING WITH A NEUTRAL SPINE PROGRESSING ROM TOLERATED. RADHA LE ROM, STRETCHING AND STRENGTHENING. HEP INSTRUCTION. 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 Present symptoms: PATIENT DENIES PAIN. PATIENT REPORTS HE HAS NEUROPATHY IN BOTH FEET AND LOWER LEGS BUT IN ADDITION TO THAT HE HAS NUMBNESS ON THE INSIDE OF HIS L THIGH. Present since: Nov Is it getting better, worse or staying the same: GETTING BETTER Commenced as a result of: HOT YOGA - ONSET A FEW DAYS AFTER A SESSION. Symptoms at onset: L HIP PAIN - MORE SEVERE THAN PRIOR SCIATICA - PAIN WENT DOWN LEG TO KNEE. Disturbed sleep: NO Previous history/Previous treatment: LUMBAR discectomy - [address] ROJELIO JOHN. NO BACK PROBLEMS FROM 2010 UNTIL NOW. Treatment this episode: ORIGINALLY THOUGHT IT WAS THE BURSA. CORTISONE INJECTION - DIDN'T HELP. WENT TO ED AND GOT MORPHINE THAT HELPED FOR A DAY. FOLLOWED UP WITH DR. JARVIS, HAD MRI OF BACK AND WAS REFERRED TO [facility] AND HAD A CONSULT THERE. HAD A SECOND CONSULT IN [facility]. HAD A CAT SCAN THERE AND UNDERWENT LAMINECTOMY AND DISCECTOMY THERE 6 WKS AGO - DOS 04/16/24. Coughing/sneezing/straining: NEGATIVE FOR PAIN Gait: NO FALLS. NOT USING ANY AD'S. Bowel or Bladder Dysfunction: NO Accidents: NO Unexplained weight loss: NO Imaging: NO IMAGING SINCE SURGERY. PMH/Recent major surgery: GOUT OTHER: PHYSICIAN RESTRICTIONS - TALKED TO NURSE 3 DAYS AGO - NO RESTRICTIONS. THEY ARE AWARE OF THE NUMBNESS IN LLE. NEXT PHONE CONVERSATION IS PLANNED IN 6 WKS (12 WKS PO). PATIENT STATES HE STARTED GOING TO [employer] A WEEK AGO. CURRENTLY DOING LEG PRESS OVER 100 LBS BUT CAN'T SEE THE EXACT AMT, LEG EXTENSIONS PROBABLY 75 LBS, LEG CURLS PROBABLY 45 LBS, ARMS, SEATED CHEST PRESS PROBABLY 100 LBS, SEATED CURL MACHINE PROBABLY 75 LBS, STAIR CLIMBER 10 MINUTES L-4, TREADMILL X 10 MINUTES 2.5 MPH WITHOUT INCLINE. AT HOME: UPRIGHT BIKE 10 minutes, LADDER CLIMBER X 5 MINUTES, TOTAL GYM - SQUATS, CURLS AND ROWS WITH 80 LBS. Objective Objective: Sitting/Standing Posture: REDUCED LUMBAR LORDOSIS. R ILIAC CREST HIGHER THAN L. INCREASED TRUNK FLEXION. NO RELEVANT LATERAL LUMBAR SHIFT. Active Correction of posture: ABLE TO PARTIALLY CORRECT. DOES NOT MAINTAIN. Other Observations: INDEP GAIT INTO PT WITHOUT ANY AD'S OR LOB. INCREASED TRUNK FLEXION WITH GAIT. INDEP TRANSFERS SIT TO STAND WITHOUT UE ASSIST. Sensory deficit: RADHA LE LIGHT TOUCH SENSATION GROSSLY INTACT AND SYMMETRICAL EXCEPT L MEDIAL THIGH REGION WHICH PATIENT REPORTS DECREASED COMPARED TO R. ROM deficit: RADHA FOOT DROP R>L WITH CALF TIGHTNESS. PATIENT REPORTS CHRONIC L FOOT DROP AND STATES R IS NEW. Motor deficit: RADHA LE STRENGTH GROSSLY 5/5 WITH MMT'ING EXCEPT ANKLES. RADHA FOOT DROP R>L. PATIENT IS ABLE TO TOE WALK BUT NOT HEEL WALK. AUDIBLE FOOT SLAP R. R ANKLE DORSIFLEXION 1/5, L 2/5. Reflexes: UNABLE TO ELICIT RADHA LE DTR'S. Dural Signs: NEGATIVE RADHA LE'S. Lumbar mvmt loss: flex - MIN ext - EDISON R SG - MOD TO EDISON L SG - MOD TO EDISON PATIENT DENIES PAIN WITH LUMBAR ROM TESTING ALL PLANES. Core strength: FAIR Palpation: SURGICAL INCISIONS LOOK GOOD WITHOUT ANY SIGNS OF INFECTION. Balance/Special Test Scores Oswestry Low Back Score: 7 Goals Goal 1:: PATIENT WILL BE KNOWLEDGABLE AND INDEP IN SAFE EX PROGRAM FOR CORE, PO STURE AND LE STRETCHING AND STRENGTHEING Goal Time Frame: 2-4 Weeks Goal 2:: PATIENT WILL DEMONSTRATE/COMMUNICATE SAFE PROPER BODY MECHANICS AND APPROPRIATE ACTIVITY MODIFICATIONS WITH LIFTING, PUSHING AND PULLING ACTIVITY FOR HEALTHY BACK HABITS. Goal Time Frame: 2-4 Weeks Rehabilitation Potential Physical Therapy Diagnosis: CORE AND POSTURAL WEAKNESS AND STIFFNESS. ANKLE WEAKNESS. Rehabilitation Potential: Good Anticipated Interventions Patient/Client Instruction: Educate patient on: Condition, Plan of Care and Risk Factors For the Purpose of:: To improve self management Therapeutic Exercise to Include: Strength training, Body mechanics, Postural training, Flexibilty training and Dynamic Lumbar Stabilization For the Purpose of:: To increase ROM, To improve muscle performance and motor function, To increase tolerance to activity/condition/position, To improve ability of physical actions for home/community/work/leisure, To increase flexibility/ROM, To improve self management and To prevent re-injury Text: Thank you for the opportunity to evaluate your patient. For Medicare and Medicare HMO plans, please review the plan of care and approve it. It will need to be FAXED BACK to us at [phone] for Medicare purposes. For Medicare only, by signing this I certify the plan of care. Please let me know if there are questions or concerns regarding this plan of care. Physician Signature: Date:
--- NOTE | 2024-07-16 12:21 | HP.PTREVAL ---
Re-Evaluation Intro: ANDREY CHILDERS, It has been my pleasure to treat KADIE TERRY over the last 6 visits for SPINAL STENOSIS. Please see the progress note below for an update on the physical therapy plan of care! Subjective Subjective: PATIENT REPORTS HE STILL HAS A LITTLE NUMBNESS AND A LITTLE TIRED BACK BUT HE FEELS LIKE IT IS WITH IN NORMAL LIMITS. HE FEEL LIKE HE NEEDS TO GIVE IT TIME. I HAVE NO REAL PAIN. I HAVE NO COMPLAINTS. PATIENT POINTS TO THE INSIDE OF HIS L THIGH AND KNEE WHEN HE STATES HE HAS SOME NUMBNESS. PATIENT ALSO REPORTS DECREASED SENSATION OF FEELING LIKE I AM STANDING IN SAND AND HE RELATES IT TO THE SUPPLEMENTS HE IS TAKING AND DIETARY CHANGES. I CAN DO PRETTY MUCH EVERYTHING AND MORE THAN I SHOULD. YOU DON'T WANT TO KNOW EVERYTHING I'VE DONE. PATIENT REPORTS THERE ARE DAYS HE DOESN'T NOTICE HIS LEFT LEG NUMBNESS AND HE THINKS IT IS IMPROVING BUT HE IS IMPATIENT. WOULD LIKE TO CONTINUE THERAPY AND GET TO THE POINT OF BEING ABLE TO WALK STRAIGHT UP, WALK FURTHER WITHOUT LIMITATION FROM L HIP PAIN IF POSSIBLE AND IS HOPING THE NUMBNESS EVENTUALLY GOES AWAY. STATES HE THINKS HIS ANKLES ARE GETTING STRONGER TOO. Objective Objective/Function: UPON EXAM TODAY, PATIENT IS ABLE TO TOE WALK BUT NOT HEEL WALK. R FOOT SLAP IS NOT AUDIBLE TODAY AND RADHA ANKLE DORSIFLEXION STRENGTH IS INCREASING: R 2/5, L 3-/5. HE CONTINUES TO STAND AND AMBULATE WITH INCREASED TRUNK FLEXION BUT POSTURE IS BECOMING MORE ERECT. HE IS A GOOD CANDIDATE FOR AQUATIC THERAPY AND HE STATES HE REALLY LIKES THIS IDEA. Plan Plan Plan: *NO BENDING OR TWISTING. NO KNEE TO CHEST OR LOWER TRUNK ROTATION. FORCUS ON CORE STABILITY WITH A NEUTRAL SPINE* - MONITOR L LE SX'S AND AVOID PERIPHERALIZATION OF SX'S. AQUATIC THERAPY 2X'S A WK X 4-6 WKS: POSTURE CORRECTION/STRENGTHENING, INSTRUCTION IN APPROPRIATE BODY MECHANICS AND ACTIVITY MODIFICATIONS. DLS WITH A NEUTRAL SPINE ONLY. RADHA LE ROM, STRETCHING AND STRENGTHENING. HEP INSTRUCTION. Balance/Gait/Functional tests Balance/Special Test Scores Oswestry Low Back Score: 7 Goals Goals Goal 1:: PATIENT WILL BE KNOWLEDGABLE AND INDEP IN SAFE EX PROGRAM FOR CORE, POSTURE AND LE STRETCHING AND STRENGTHEING Goal Time Frame: 2-4 Weeks Goal Progress: Progressing Goal 2:: PATIENT WILL DEMONSTRATE/COMMUNICATE SAFE PROPER BODY MECHANICS AND APPROPRIATE ACTIVITY MODIFICATIONS WITH LIFTING, PUSHING AND PULLING ACTIVITY FOR HEALTHY BACK HABITS. Goal Time Frame: 2-4 Weeks Goal Progress: Progressing Anticipated Interventions Anticipated Interventions Patient/Client Instruction: Educate patient on: Condition, Plan of Care and Risk Factors For the Purpose of:: To improve self management Therapeutic Exercise to Include: Strength training, Body mechanics, Postural training, Flexibilty training and Dynamic Lumbar Stabilization For the Purpose of:: To increase ROM, To improve muscle performance and motor function, To increase tolerance to activity/condition/position, To improve ability of physical actions for home/community/work/leisure, To increase flexibility/ROM, To improve self management and To prevent re-injury Re-Evaluation Ending Re-evaluation ending: Please do not hesitate to contact me at [phone] by phone or if you have questions or concerns regarding this new plan of care! Sincerely, Sherley Sadler, PT, Cert MDT
== END 2024-08-19 19:00 | disposition home or self-care (01) ==
LOC: PT 10:00
PROVIDERS: PCP Student in an Organized Health Care Education/Training Program
DX: M48.07 Spinal stenosis, lumbosacral region (principal)
CPT/HCPCS: 97113; 97162; 97164; 97530